=== PATIENT | female | born 1970 | race Caucasian/White ===

== ENCOUNTER 2018-11-05 13:27 | Emergency (ER) | payer OTHER ==
[~2018-11-05 13:27] MED LIST: Iopamidol 370 76% 100 ML VIAL ONE
[2018-11-05] MEDS ORDERED: Sodium Chloride 0.9% 1,000 ML ONE ×2 (13:42→14:59)
[2018-11-05] MEDS ORDERED: Ondansetron PF 4 MG/2 ML Vial ONE (13:42)
[2018-11-05 13:51] LABS: #Basophils 0.1 thou/uL (0.0-0.2); #Eosinphils 0.1 thou/uL (0.0-0.7); #Lymphocytes 1.4 thou/uL (1.20-3.40); #Monocytes 2.1 thou/uL (0.11-0.59); #Neutrophils 10.8 thou/uL (1.40-6.50); %Basophils 0.4 % (0.0-1.0); %Eosinophils 0.8 % (0.0-10.0); %Lymphocytes 9.6 % (21.0-51.0); %Monocytes 14.4 % (0.0-10.0); %Neutrophils 74.9 % (42.0-75.0); Hemoglobin 12.5 g/dL (12.0-16.0); Mean Corpuscular Hemoglobin 25.3 pg (27.0-31.0); Mean Corpuscular Volume 81.5 fL (78.0-98.0); Mean Platelet Volume 5.9 fL (7.4-10.4); Platelet Count 455 thou/uL (130-400); RBC Distribution Width 11.4 % (11.5-14.5); Red Blood Cell (RBC) Count 4.95 mill/uL (4.20-5.40); White Blood Cell (WBC) Count 14.4 thou/uL (4.8-10.8)
[2018-11-05 14:06] LABS: ALT (SGPT) 11 U/L (8-55); AST (SGOT) 10 U/L (5-34); Alkaline Phosphatase 97 U/L (40-150); Anion Gap 14 mmol/L (10-20); BUN (Urea Nitrogen) 7 mg/dL (7.0-18.7); Bilirubin, Total 0.4 mg/dL (0.2-1.2); Calc. Creatinine Clearance 0 mL/min (70-130); Calcium 8.8 mg/dL (7.8-10.44); Carbon Dioxide 28 mmol/L (22-29); Chloride 96 mmol/L (98-107); Estimated GFR-MDRD 88; Globulin 2.5 g/dL (2.4-3.5); Glucose 117 mg/dL (70-105); Potassium 3.3 mmol/L (3.5-5.1); Protein, Total 6.5 g/dL (6.0-8.3); Sodium 135 mmol/L (136-145)
[2018-11-05 14:06] LABS: Bilirubin Negative (Negative); Blood, Urine Trace (Negative); Glucose, Urine (Dipstick) Negative (Negative); Leukocyte Negative (Negative); Nitrite Negative (Negative); Protein, Urine (Dipstick) Negative (Neg-Trace); Urobilinogen 0.2 mg/dL (Less than 2)
[2018-11-05 14:27] LABS: Clarity SL HAZY (Clear)
[2018-11-05 14:28] LABS: Bacteria/HPF 2+ HPF (None Seen); RBC/HPF 0-3 HPF (0-3); WBC/HPF 0-3 HPF (0-3)
[2018-11-05] MEDS ORDERED: Cefepime 2 GM VIAL ONE (15:03)
[2018-11-05] MEDS ORDERED: Sodium Chloride 0.9% 100 ML ONE (15:04)
--- NOTE | 2018-11-05 15:39 | CT ---
EXAM: Abdomen and pelvic CT scan with contrast: HISTORY: Abdominal pain and fever COMPARISON: None FINDINGS: Scattered ascites. Postop laminectomy and posterior fusion changes at L4-L5 and L5-S1. There is prominent lucency of the bone around the right L4 pedicle screw and minimal lucency around the screw of the left L4 pedicle screw evidence for loosening. Moderate anterolisthesis of L5 on S1 probably grade 2. Severe disc narr owing and sclerosis at L3-L4 disc. Somewhat oblong 0.6 x 1.0 cm cyst in the central liver near the hepatic vein. Abnormal wall thickening of the distal left colon and extending into the sigmoid colon and at least into the upper rectum. Minimally abnormally dilated small bowel loops with some minimal bowel wall thickening in the left midabdomen central abdomen and left upper quadrant, nonspec ific possibly ileus versus enteritis in addition to the marked left colitis. The visualized lung bases are clear. Liver: Cysts as above. Gallbladder:Unremarkable. Pancreas:Unremarkable Spleen:Unremarkable. Adrenal glands:Unremarkable. Kidneys:No renal calculus or acute obstruction.No solid or cystic mass. No overt bowel obstruction. Abnormal appearing colon and small bowel as above. No convincing CT evidence for acute appendicitis. The urinary bladder is unremarkable. No abscess, adenopathy, or abnormal fluid collection within the abdomen or pelvis. IMPRESSION: Scattered ascites. Evidence for mid and distal left colon and sigmoid colon colitis extending into th e rectum. Abnormal small bowel with some dilatation and wall thickening concerning for ileus or associated ente ritis. Postop changes of the lower lumbar spine with bone lucency around the L4 pedicle screws worse on the right side evidence for loosening. Grade 2 spondylolisthesis of L5 on S1.
[2018-11-05] MEDS ORDERED: metroNIDAZOLE 500 MG/100 ML BAG ONE (15:59)
== END 2018-11-05 17:36 | disposition short-term general hospital (02) ==
LOC: NAV ERS 13:27
DX: A41.9 Sepsis, unspecified organism (principal); K52.9 Noninfective gastroenteritis and colitis, unspecified; E78.00 Pure hypercholesterolemia, unspecified; J44.9 Chronic obstructive pulmonary disease, unspecified; F31.9 Bipolar disorder, unspecified; F41.9 Anxiety disorder, unspecified; Z87.891 Personal history of nicotine dependence; Z79.899 Other long term (current) drug therapy
CPT/HCPCS: 74177; 80053; 81003; 81015; 83605; 85025; 87040; 96361; 96365; 96367; 96375; J0692; J2405; J3490; J7050; Q9967